=== PATIENT | female | born 1995 | race Caucasian/White ===

== ENCOUNTER → 2025-01-15 | Outpatient (CLI) | payer BC, SELFPAY ==
[2025-01-16 09:12] LABS: BVAG Candida Negative (Negative); Bacterial Vaginosis Markers Negative (Negative); Candida glabrata Negative (Negative); Candida krusei PCR Negative (Negative); Trichomonas Negative (Negative)
== END | disposition home or self-care (01) ==
PROVIDERS: Referring Provider Physician Assistant Medical; Visit Provider Physician Assistant Medical
DX: B37.89 Other sites of candidiasis (principal); N76.0 Acute vaginitis; A59.01 Trichomonal vulvovaginitis
CPT/HCPCS: 81514

== ENCOUNTER → 2025-01-22 | Outpatient (CLI) | payer BC, SELFPAY ==
[2025-01-22 14:47] LABS: Collection Type, Urine Clean Catch
[2025-01-22 16:13] LABS: Amphetamine/Methamp Scrn,U Negative (Negative); Barbiturate Screen,Urine Negative (Negative); Benzodiazepines Screen,Urine Negative (Negative); Benzoylecgonine Screen, Ur Negative (Negative); Fentanyl Screen,Urine Negative (Negative); Opiate Screen,Urine Negative (Negative); THC Screen,Urine Negative (Negative)
[2025-01-22 16:44] LABS: Bacteria,Urine Rare; Bilirubin,Urine Negative (Negative); Blood,Urine 2+ (Negative); Clarity,Urine Clear (Clear/Hazy); Color,Urine Lt-Yellow (Lt Yel-Yel); Glucose, Urine Negative (Negative); Ketones,Urine Negative (Negative); Leukocyte Esterase,Urine Positive (Negative); Nitrite,Urine Negative (Negative); Protein,Urine Negative (Neg - Trace); RBC,Urine 2 /hpf (0-3); Specific Gravity,Urine 1.007 (1.001-1.035); Squamous Epithelial Cell,Urine 4 /hpf (0-5); Urobilinogen,Urine Negative mg/dL (0.0-1.0); WBC,Urine 3 /hpf (0-5)
== END | disposition home or self-care (01) ==
PROVIDERS: PCP Nurse Practitioner Family; Referring Provider Physician Assistant Medical; Visit Provider Physician Assistant Medical
DX: Z34.81 Encounter for supervision of other normal pregnancy, first trimester (principal)
CPT/HCPCS: 80307; 81001; 87086

== ENCOUNTER → 2025-02-04 | Outpatient (CLI) | payer BC, SELFPAY ==
[2025-02-04 16:46] LABS: Glucose,1 Hour PP 50gm Dose 115 mg/dL (80-140)
== END | disposition home or self-care (01) ==
PROVIDERS: Referring Provider Physician Assistant Medical; Visit Provider Physician Assistant Medical
DX: Z34.82 Encounter for supervision of other normal pregnancy, second trimester (principal)
CPT/HCPCS: 36415; 82950

== ENCOUNTER → 2025-02-04 | Outpatient (CLI) | payer BC, SELFPAY ==
[2025-02-04 09:03] LABS: Quantiferon-TB* See Sep Rpt
[2025-02-04 09:56] LABS: Basophils # (Auto) 0.1 Thou/mm3 (0.0-0.2); Basophils % (Auto) 1 % (0-2.5); Eosinophils % (Auto) 0 % (0-10); Hematocrit 34.7 % (36.0-46.0); Hemoglobin 11.6 g/dL (12.0-16.0); Immature Granulocytes % (Auto) 0 % (0-0); Immature Granulocytes Auto 0.02 Thou/mm3 (0.00-0.00); Lymphocytes % (Auto) 26 % (10-50); Mean Corpuscular HGB Conc 33.4 g/dl (31.0-37.0); Mean Corpuscular Hemoglobin 29.1 pg (25.0-35.0); Mean Corpuscular Volume 87 fL (80-100); Monocytes # (Auto) 0.3 Thou/mm3 (0.0-0.8); Monocytes % (Auto) 4 % (0-12); Neutrophils # (Auto) 5.4 Thou/mm3 (1.8-7.7); Neutrophils % (Auto) 69 % (37-80); Nucleated Red Blood Cell % 0 /100 WBC (0); Platelet Count 329 Thou/mm3 (140-440); RDW Standard Deviation 40.5 fL (36.4-46.3); Red Blood Count 3.98 Miln/mm3 (4.00-5.20); White Blood Count 7.8 Thou/mm3 (3.6-11.0)
[2025-02-04 10:03] LABS: Glucose Estimated Average 91 mg/dL (80-131); Hemoglobin A1C 4.8 % Hgb (4.8-6.0)
[2025-02-04 10:17] LABS: Creatinine (Component) 0.5 mg/dL (0.6-1.3); Glucose 83 mg/dL (74-106); eGFR > 60 See Note
[2025-02-04 10:29] LABS: Hepatitis B Surface Antigen Non Reactive (Non React); Rubella, IgG Antibody NonReact(Not Immune)
[2025-02-04 10:30] LABS: Syphilis Nonreactive (Nonreactive)
[2025-02-04 10:42] LABS: Beta HCG,Quantitative 102910 mIU/mL (<5.0)
[2025-02-08 03:04] LABS: HCV RNA, PCR <15 NOT DETECTED IU/mL
[2025-02-08 07:17] LABS: HCV RNA, PCR Log IU <1.18 NOT DETECTED Log IU/mL; HIV Ag/Ab, 4th Gen NON-REACTIVE
== END | disposition home or self-care (01) ==
LOC: COPL 08:20
PROVIDERS: PCP Family Medicine; Referring Provider Physician Assistant Medical; Visit Provider Physician Assistant Medical
DX: Z34.81 Encounter for supervision of other normal pregnancy, first trimester (principal)
CPT/HCPCS: 36415; 82565; 82947; 83036; 84702; 85025; 86480; 86762; 86780; 86850; 86900; 86901; 87340; 87389; 87522

== ENCOUNTER → 2025-05-18 | Outpatient (CLI) | payer BC, SELFPAY | END | disposition home or self-care (01) | LOC: SLDO 14:47 | PROVIDERS: Referring Provider Physician Assistant Medical; Visit Provider Physician Assistant Medical | DX: R10.2 Pelvic and perineal pain (principal) | CPT/HCPCS: 87077; 87086; 87186 ==

== ENCOUNTER → 2025-05-19 | Outpatient (CLI) | payer BC, SELFPAY ==
[2025-05-19 15:48] LABS: Misc Send Out* See Sep Rpt
[2025-05-19 16:48] LABS: Basophils # (Auto) 0.1 Thou/mm3 (0.0-0.2); Basophils % (Auto) 1 % (0-2.5); Eosinophils # (Auto) 0.0 Thou/mm3 (0.0-0.5); Eosinophils % (Auto) 0 % (0-10); Hematocrit 35.9 % (36.0-46.0); Hemoglobin 10.2 g/dL (12.0-16.0); Immature Granulocytes Auto 0.04 Thou/mm3 (0.00-0.00); Lymphocytes # (Auto) 1.9 Thou/mm3 (1.0-4.8); Lymphocytes % (Auto) 22 % (10-50); Mean Corpuscular HGB Conc 28.4 g/dl (31.0-37.0); Mean Corpuscular Hemoglobin 28.8 pg (25.0-35.0); Mean Corpuscular Volume 101 fL (80-100); Monocytes # (Auto) 0.4 Thou/mm3 (0.0-0.8); Monocytes % (Auto) 5 % (0-12); Neutrophils # (Auto) 6.0 Thou/mm3 (1.8-7.7); Neutrophils % (Auto) 71 % (37-80); Nucleated Red Blood Cell # 0.00 Thou/mm3 (0.00-0.00); Nucleated Red Blood Cell % 0 /100 WBC (0); Platelet Count 279 Thou/mm3 (140-440); RDW Standard Deviation 52.1 fL (36.4-46.3); Red Blood Count 3.54 Miln/mm3 (4.00-5.20); White Blood Count 8.5 Thou/mm3 (3.6-11.0)
[2025-05-19 16:56] LABS: Glucose,1 Hour PP 50gm Dose 113 mg/dL (80-140)
[2025-05-19 17:03] LABS: Ferritin 394 ng/mL (7.3-270.7); Iron 42 mcg/dL (50-170); Percent Iron Saturation 9 % (20-55); Total Iron Binding Capacity 429 mcg/dL (250-425); Unsaturated Iron Binding 387 (225-295)
[2025-05-19 17:06] LABS: Folate > 24.00 ng/mL (>5.38); Vitamin B12 280 pg/mL (211-911)
[2025-05-24 22:05] LABS: Hemoglobinopathy Hematocrit 34.0 % (35.0-45.0); Hemoglobinopathy Hemoglobin 10.4 g/dL (11.7-15.5); Hemoglobinopathy Hemoglobin A2 2.7 % (2.0-3.2); Hemoglobinopathy Hemoglobin F 0.0 % (LESS THAN 2.0); Hemoglobinopathy MCH 29.5 pg (27.0-33.0); Hemoglobinopathy MCV 96.6 fL (80.0-100.0); Hemoglobinopathy Red Blood Cnt 3.52 Million/uL (3.80-5.10)
[2025-05-26 07:05] LABS: Hemoglobinopathy Hemoglobin A 97.3 %; Hemoglobinopathy RDW 12.4 % (11.0-15.0)
== END | disposition home or self-care (01) ==
LOC: SLDO 14:46
PROVIDERS: Referring Provider Physician Assistant Medical; Visit Provider Physician Assistant Medical
DX: D50.9 Iron deficiency anemia, unspecified (principal); Z34.82 Encounter for supervision of other normal pregnancy, second trimester
CPT/HCPCS: 36415; 82607; 82728; 82746; 82950; 83020; 83540; 83550; 85014; 85018; 85025; 85041

== ENCOUNTER → 2025-06-03 | Outpatient (CLI) | payer BC, SELFPAY ==
[2025-06-03 17:21] LABS: Basophils # (Auto) 0.1 Thou/mm3 (0.0-0.2); Basophils % (Auto) 1 % (0-2.5); Eosinophils # (Auto) 0.0 Thou/mm3 (0.0-0.5); Eosinophils % (Auto) 0 % (0-10); Hematocrit 34.1 % (36.0-46.0); Hemoglobin 10.7 g/dL (12.0-16.0); Immature Granulocytes Auto 0.06 Thou/mm3 (0.00-0.00); Lymphocytes # (Auto) 2.0 Thou/mm3 (1.0-4.8); Lymphocytes % (Auto) 21 % (10-50); Mean Corpuscular HGB Conc 31.4 g/dl (31.0-37.0); Mean Corpuscular Hemoglobin 28.9 pg (25.0-35.0); Mean Corpuscular Volume 92 fL (80-100); Monocytes # (Auto) 0.5 Thou/mm3 (0.0-0.8); Monocytes % (Auto) 5 % (0-12); Neutrophils # (Auto) 6.6 Thou/mm3 (1.8-7.7); Neutrophils % (Auto) 72 % (37-80); Nucleated Red Blood Cell # 0.00 Thou/mm3 (0.00-0.00); Nucleated Red Blood Cell % 0 /100 WBC (0); Platelet Count 303 Thou/mm3 (140-440); RDW Standard Deviation 43.9 fL (36.4-46.3); Red Blood Count 3.70 Miln/mm3 (4.00-5.20); White Blood Count 9.2 Thou/mm3 (3.6-11.0)
[2025-06-03 17:54] LABS: Syphilis Nonreactive (Nonreactive)
== END | disposition home or self-care (01) ==
LOC: SLDO 14:47
PROVIDERS: Referring Provider Physician Assistant Medical; Visit Provider Physician Assistant Medical
DX: Z34.83 Encounter for supervision of other normal pregnancy, third trimester (principal)
CPT/HCPCS: 36415; 85025; 86780

== ENCOUNTER → 2025-07-01 | Outpatient (CLI) | payer BC, SELFPAY ==
[2025-07-01 10:49] LABS: Basophils # (Auto) 0.1 Thou/mm3 (0.0-0.2); Basophils % (Auto) 1 % (0-2.5); Eosinophils # (Auto) 0.0 Thou/mm3 (0.0-0.5); Eosinophils % (Auto) 0 % (0-10); Hematocrit 30.5 % (36.0-46.0); Hemoglobin 10.0 g/dL (12.0-16.0); Immature Granulocytes Auto 0.04 Thou/mm3 (0.00-0.00); Lymphocytes # (Auto) 2.0 Thou/mm3 (1.0-4.8); Lymphocytes % (Auto) 21 % (10-50); Mean Corpuscular HGB Conc 32.8 g/dl (31.0-37.0); Mean Corpuscular Hemoglobin 28.6 pg (25.0-35.0); Mean Corpuscular Volume 87 fL (80-100); Monocytes # (Auto) 0.4 Thou/mm3 (0.0-0.8); Monocytes % (Auto) 5 % (0-12); Neutrophils # (Auto) 6.8 Thou/mm3 (1.8-7.7); Neutrophils % (Auto) 73 % (37-80); Nucleated Red Blood Cell # 0.00 Thou/mm3 (0.00-0.00); Nucleated Red Blood Cell % 0 /100 WBC (0); Platelet Count 270 Thou/mm3 (140-440); RDW Standard Deviation 41.3 fL (36.4-46.3); Red Blood Count 3.50 Miln/mm3 (4.00-5.20); White Blood Count 9.3 Thou/mm3 (3.6-11.0)
[2025-07-01 11:02] LABS: Alanine Aminotransferase < 7 U/L (10-49); Albumin, Serum 4.1 gm/dL (3.5-5.0); Albumin/Globulin Ratio 1.6 (1.2-2.2); Alkaline Phosphatase 108 U/L (46-116); Anion Gap 9 (7-16); Aspartate Amino Transferase 15 U/L (0-34); BUN/Creatinine Ratio 13 Ratio (12-20); Bilirubin,Total 0.3 mg/dL (0.3-1.2); Blood Urea Nitrogen 5 mg/dL (9-23); Calcium 8.9 mg/dL (8.3-10.6); Calcium (Corrected) 8.9 mg/dL (8.5-10.1); Carbon Dioxide 22.2 mMol/L (20.0-31.0); Chloride 108 mMol/L (98-107); Creatinine (Component) 0.4 mg/dL (0.6-1.3); Globulin 2.5 gm/dL (2.3-3.5); Glucose 78 mg/dL (74-106); Osmolality,Calculated 273 (275-295); Potassium 4.0 mMol/L (3.4-5.1); Sodium 139 mMol/L (136-145); Total Protein 6.6 gm/dL (5.7-8.2); eGFR > 60 See Note
[2025-07-01 11:16] LABS: Folate 20.57 ng/mL (>5.38); Vitamin B12 286 pg/mL (211-911)
[2025-07-01 11:18] LABS: Ferritin 309 ng/mL (7.3-270.7); Iron 71 mcg/dL (50-170); Percent Iron Saturation 15 % (20-55); Total Iron Binding Capacity 445 mcg/dL (250-425); Unsaturated Iron Binding 374 (225-295)
== END | disposition home or self-care (01) ==
LOC: COPL 09:08
PROVIDERS: PCP Family Medicine; Referring Provider Physician Assistant Medical; Visit Provider Physician Assistant Medical
DX: Z34.83 Encounter for supervision of other normal pregnancy, third trimester (principal); D50.9 Iron deficiency anemia, unspecified; R82.998 Other abnormal findings in urine
CPT/HCPCS: 36415; 80053; 82607; 82728; 82746; 83540; 83550; 85025

== ENCOUNTER → 2025-07-05 | Outpatient (CLI) | payer BC, SELFPAY ==
[2025-07-05 12:25] LABS: Creatinine, Urine Volume 750 mL/24hr (600-1800); Protein Total, Urine Volume 750 mL/24hr (600-1800)
[2025-07-05 12:34] LABS: Creatinine, 24 Hour Urine 0.8 gm/24hr (0.6-1.8); Creatinine,Urine 102 mg/dL (30-125); Protein Total, 24 hr Urine 225 mg/24hr (<149); Protein Total, Urine 30 mg/dL (1-14)
== END | disposition home or self-care (01) ==
LOC: SLDO 11:08
PROVIDERS: Referring Provider Physician Assistant Medical; Visit Provider Physician Assistant Medical
DX: R82.998 Other abnormal findings in urine (principal); D50.9 Iron deficiency anemia, unspecified
CPT/HCPCS: 82570; 84156

== ENCOUNTER → 2025-07-13 | Outpatient (CLI) | payer BC, SELFPAY | END | disposition home or self-care (01) | LOC: SLDO 14:30 | PROVIDERS: Referring Provider Physician Assistant Medical; Visit Provider Physician Assistant Medical | DX: Z34.83 Encounter for supervision of other normal pregnancy, third trimester (principal) | CPT/HCPCS: 87077; 87086; 87186 ==

== ENCOUNTER → 2025-07-20 | Outpatient (CLI) | payer BC, SELFPAY ==
[2025-07-21 12:24] LABS: BVAG Candida Negative (Negative); Bacterial Vaginosis Markers Positive (Negative); Candida glabrata Negative (Negative); Candida krusei PCR Negative (Negative); Trichomonas Negative (Negative)
== END | disposition home or self-care (01) ==
LOC: SLDO 14:40
PROVIDERS: Referring Provider Specialist; Visit Provider Specialist
DX: Z34.83 Encounter for supervision of other normal pregnancy, third trimester (principal)
CPT/HCPCS: 81514

== ENCOUNTER 2025-08-16 15:12 | Outpatient (CLI) | payer BC, SELFPAY ==
[2025-08-16] VITALS (8 sets, daily range): BP systolic 121; BP diastolic 71; PULSE 90–105; RESP 18–98; TEMP 37.2; O2SAT 96–100; BMI 29.8
--- NOTE | 2025-08-16 15:24 | XR_ITS ---
Examination: Biophysical profile, ultrasound Date and time of exam: 08/16/2025 at 3:59 p.m. Technique: Multiple transabdominal sonographic images of the pelvis abdomen obtained. Attention is directed to the breathing movement, gross body movement, amniotic fluid volume and tone. Findings: The body movement score is 2, breathing motion score is 2, tone is 2, and the quantitative amniotic fluid volume index measures 12.3 cm which gives a score of 2 Total biophysical profile is 8 of 8. breathing movement is 2. Gross body movement is 2. tone is 2. Qualitative amniotic fluid volume is 2 Impression: Biophysical profile is 8 of 8. This is perfectly normal. In addition, the heart rate is 140 bpm which is normal
--- NOTE | 2025-08-22 07:34 | PC.NURSE ---
PT CALLED, ASKED FOR BED AVAILABILITY FOR IOL, INFORMED OF NO BEDS AVAILABLE AT THIS TIME, EDUCATED ON KICK COUNT AND LABOR PRECAUTIONS, WILL CALL ONCE BED BECOMES AVAILABLE, ASKED PT TO CALL BACK AT 1700, PT VERBALIZED UNDERSTANDING
--- NOTE | 2025-08-22 14:51 | PC.NURSE ---
CALLED PT, ASKED PT TO COME IN FOR IOL, BE HERE BY 1600
== END 2025-08-16 16:50 | disposition home or self-care (01) ==
LOC: S4S1 15:13 → S4SX 15:14
PROVIDERS: Referring Provider Specialist; Visit Provider Specialist
DX: Z34.83 Encounter for supervision of other normal pregnancy, third trimester (principal); Z3A.40 40 weeks gestation of pregnancy
CPT/HCPCS: 59025; 76819

== ENCOUNTER 2025-08-22 15:26 | Inpatient (IN) | payer BC, SELFPAY ==
--- NOTE | 2025-08-16 15:18 | ESHP_ITS ---
RE: CHAPIN CRUZ : 1995 DATE OF ADMISSION: 08/22/2025 HISTORY OF PRESENT ILLNESS: This is a 29-year-old 2, para 1 with due date of 08/15 with intrauterine at 41 weeks and 0 day who present for induction of labor for postdates. Patient reports normal movement. She denies any leaking or bleeding. She had a maternal medicine ultrasound on 08/04/2025, which showed growth at the 43rd percentile and abdominal circumference at the 76th percentile. ALLERGIES: NO KNOWN DRUG ALLERGIES. MEDICATIONS: 1. multivitamin 1 p.o. daily. 2. Ferrous sulfate 325 mg 1 p.o. b.i.d. PAST MEDICAL HISTORY: Gestational diabetes mellitus in a prior , rubella nonimmune, iron deficiency anemia. FAMILY HISTORY: Diabetes. OBSTETRIC HISTORY: 08/2023, 37-week vaginal delivery, 6 pounds 6 ounces male complicated by meconium aspiration. REVIEW OF SYSTEMS: She denies any chest pain, palpitations, cough, fever, shortness of breath, or lower extremity pain. PHYSICAL EXAMINATION: VITAL SIGNS: Blood pressure 112/62, heart rate 88, respirations 18, temperature 98.2, weight 156 pounds. HEENT: Oropharynx and sclerae clear. LUNGS: Clear to auscultation bilaterally. HEART: Regular rate and rhythm. ABDOMEN: Gravid, consistent with estimated 7-3/4 pounds. PELVIC: See RN notes. EXTREMITIES: Nontender. SKIN: No gross rashes or lesions. NEUROLOGIC: No focal deficit. ASSESSMENT AND PLAN: Intrauterine at 41 weeks and 0 day. Postdates. Induction of Labor. Informed consent obtained. Patient made aware of the risks, complications, alternatives, and benefits of the proposed procedure and she agrees. DT: 15:04:41 TT: 15:17:00 Ref: [id number] - TID: [id number] [facility]
[2025-08-22] VITALS (97 sets, daily range): BP systolic 98–120; BP diastolic 55–73; PULSE 93–122; RESP 16–17; TEMP 36.8–37.3; O2SAT 89–100; BMI 29.6
--- NOTE | 2025-08-22 16:21 | PD.ADDHP ---
Addendum History & Physical Addendum Date of report being addended: 08/22/25 Narrative: No changes in her exam or H and P . BP 111/70 HR 97 RR 16 T afebrile.
[2025-08-22] MEDS: RINGERS LACTATED 1000 ML 1,000 ML 100 ML IV ×2 (16:31→18:30)
[2025-08-22 17:22] LABS: Basophils # (Auto) 0.1 Thou/mm3 (0.0-0.2); Basophils % (Auto) 1 % (0-2.5); Eosinophils # (Auto) 0.1 Thou/mm3 (0.0-0.5); Eosinophils % (Auto) 1 % (0-10); Hematocrit 34.3 % (36.0-46.0); Hemoglobin 11.0 g/dL (12.0-16.0); Immature Granulocytes Auto 0.04 Thou/mm3 (0.00-0.00); Lymphocytes # (Auto) 2.5 Thou/mm3 (1.0-4.8); Lymphocytes % (Auto) 26 % (10-50); Mean Corpuscular HGB Conc 32.1 g/dl (31.0-37.0); Mean Corpuscular Hemoglobin 26.9 pg (25.0-35.0); Mean Corpuscular Volume 84 fL (80-100); Monocytes # (Auto) 0.7 Thou/mm3 (0.0-0.8); Monocytes % (Auto) 7 % (0-12); Neutrophils # (Auto) 6.1 Thou/mm3 (1.8-7.7); Neutrophils % (Auto) 65 % (37-80); Nucleated Red Blood Cell # 0.00 Thou/mm3 (0.00-0.00); Nucleated Red Blood Cell % 0 /100 WBC (0); Platelet Count 299 Thou/mm3 (140-440); RDW Standard Deviation 45.2 fL (36.4-46.3); Red Blood Count 4.09 Miln/mm3 (4.00-5.20); White Blood Count 9.4 Thou/mm3 (3.6-11.0)
[2025-08-22 17:50] LABS: ROM Swab Mixed By: RN; Rupture of Fetal Membranes Positive (Negative); Swb Mxed in Solvent 1 min? Yes
[2025-08-22 19:42] LABS: Syphilis Nonreactive (Nonreactive)
[2025-08-22] MEDS: OXYTOCIN in NS 30 units 30 UNIT/500 ML BAG IV (20:54)
[2025-08-23] VITALS (124 sets, daily range): BP systolic 101–165; BP diastolic 52–83; PULSE 72–214; RESP 16–18; TEMP 36.7–37.1; O2SAT 89–100
[2025-08-23] MEDS: OXYTOCIN in NS 20 units 20 UNIT/1,000 ML BAG 125 UNIT IV (05:00)
[2025-08-23] MEDS: LIDOCAINE HCL 1% 20 ML VIAL INFL (05:00)
[2025-08-23] MEDS: METHYLERGONOVINE INJ 0.2 MG/ML VIAL IM (05:06)
[2025-08-23] MEDS: BENZO/LANO/ALOE (Dermoplast) 60 GM CAN 1 SPRAY TOP (05:21)
--- NOTE | 2025-08-23 05:21 | PD.LDDS ---
DS: Providers Provider Date of admission: 08/22/25 15:26 Primary care physician: Physician No Primary/Family Admitting Provider: Akin Chávez MD Attending Provider on Admission: Akin Chávez MD Attending Provider on DC: Akin Chávez MD Discharging Provider: Akin Chávez MD DS: Diagnosis Discharge Diagnosis (1) Gestational diabetes mellitus (GDM): Status: Acute (2) (normal spontaneous vaginal delivery): Status: Acute Problem List Completed Was Problem List Reviewed/Reconciled?: Yes Summary/Hosp Course Time Spent with Patient Time attestation: Total time spent providing and/or coordinating discharge services: Exam Vital Signs Temp Pulse Resp BP Pulse Ox O2 Del Method 98.4 F 99 17 113/57 L 100 Room Air 08/23/25 02:40 08/23/25 05:07 08/23/25 02:40 08/23/25 05:07 08/23/25 05:16 08/23/25 02:40 Discharge Plan Plan Patient Disposition: HOME (Self Care) Patient condition on transfer: Stable Prescriptions/Referrals Prescriptions/Med Rec: New ibuprofen 600 mg tablet 600 mg PO Q6H PRN (Reason: pain) Qty: 30 0RF Continued prenat.vits,serafin,[id number] Tablet 1 tab PO QDAY Referrals: No Primary/Family,Physician [Primary Care Provider] Patient/Caregiver Discharge Instructions Discharge Activity: activity as tolerated Other Discharge Activity Instructions:: Follow up office 6 weeks Print Language: [place] Stand Alone Forms: Bertha Award Info., Patient Portal Info Letter Discharge Order Discharge Orders: Discharge (Routine); Ordered 08/24/25 Ordered By: Akin Chávez Planned Discharge Date 08/24/25
[2025-08-23] MEDS: IBUPROFEN TAB 400 MG TABLET 800 MG PO (05:35)
--- NOTE | 2025-08-23 07:16 | OBDSUM_ITS ---
Data ([place]) Data Hx Section: No : 2 Term: 1 : 0 Livin Abortions: Spontaneous & Theraputic: 0 Delivery Data ([place]) Labor Data Initiation of labor: Augmentation Induction/Augmentation Agent: Pitocin ROM date: 08/22/25 ROM time: 17:04 Amniotic membrane rupture type: Spontaneous Amniotic fluid description: Clear Delivery Data EDC: 08/15/25 EDC calculated by:: LMP/early US confirmation Onset of labor date: 08/23/25 Onset of labor time: 03:36 Complete dilation date: 08/23/25 Complete dilation time: 04:52 [place] delivery date: 08/23/25 [place] delivery time: 04:57 Gestational age (weeks): 41 Gestational age (days): 0 Placenta delivery date: 08/23/25 Placenta delivery time: 05:02 Stage 1 total time: Labor - Stage 1 Duration 1 hours and 16 minutes Delivered by: Akin Chávez Delivery nurse: Alfie Gary RN [place] nurse: Angela Nunes RN [employer] Operator at delivery: No Support person(s) at delivery: FOB, mother of pt Other staff at delivery: Kristine Leigh RN Delivery Method Delivery method: Normal Vaginal Delivery Presentation: Vertex position: OA Anesthesia Type Anesthesia Type: Local and Epidural Placenta Placenta delivery description: Spontaneous Cord blood sent to lab: Yes cord blood collection: Cord Blood Type Episiotomy Episiotomy description: None Lacerations #1: Perineal: 2nd degree Perineal repair Sutures used for repair: 3.0 Chromic EBL Estimated blood loss (ml): 300 Umbilical Cord cord description: 3 Vessels Complications Complications: None Data ([place]) [place] Data order: 1 's gender: Female weight (gms): 7 lb 11.812 oz Weight (pounds): 7 lbs and 11.8 ozs 1 minute: 8 5 minutes: 9
[2025-08-23 11:00] LABS: Basophils # (Auto) 0.1 Thou/mm3 (0.0-0.2); Basophils % (Auto) 1 % (0-2.5); Eosinophils # (Auto) 0.0 Thou/mm3 (0.0-0.5); Eosinophils % (Auto) 0 % (0-10); Hematocrit 35.4 % (36.0-46.0); Hemoglobin 11.4 g/dL (12.0-16.0); Immature Granulocytes Auto 0.08 Thou/mm3 (0.00-0.00); Lymphocytes # (Auto) 2.5 Thou/mm3 (1.0-4.8); Lymphocytes % (Auto) 14 % (10-50); Mean Corpuscular HGB Conc 32.2 g/dl (31.0-37.0); Mean Corpuscular Hemoglobin 26.8 pg (25.0-35.0); Mean Corpuscular Volume 83 fL (80-100); Monocytes # (Auto) 0.9 Thou/mm3 (0.0-0.8); Monocytes % (Auto) 5 % (0-12); Neutrophils # (Auto) 14.2 Thou/mm3 (1.8-7.7); Neutrophils % (Auto) 80 % (37-80); Nucleated Red Blood Cell # 0.00 Thou/mm3 (0.00-0.00); Nucleated Red Blood Cell % 0 /100 WBC (0); Platelet Count 280 Thou/mm3 (140-440); RDW Standard Deviation 44.2 fL (36.4-46.3); Red Blood Count 4.26 Miln/mm3 (4.00-5.20); White Blood Count 17.8 Thou/mm3 (3.6-11.0)
[2025-08-24 00:14] VITALS: BP 105/70; PULSE 84; RESP 14; TEMP 36.6; O2SAT 98
[2025-08-24] MEDS: IBUPROFEN TAB 400 MG TABLET 800 MG PO (03:30)
[2025-08-24 03:34] VITALS: BP 106/70; PULSE 85; RESP 18; TEMP 36.6; O2SAT 97
--- NOTE | 2025-08-24 07:24 | PC.NURSE ---
0700 Pt declined the TDAP vaccine. Education provided. Patient states she will receive it later in office from her primary MD.
[2025-08-24 08:00] VITALS: BP 98/61; PULSE 75; RESP 18; TEMP 36.8; O2SAT 98
== END 2025-08-24 11:50 | disposition home or self-care (01) | DRG 807 ==
LOC: S4SX 08-23 05:18 → S4NX 08-23 07:41
PROVIDERS: Admitting Provider Specialist; Visit Provider Specialist
DX: O48.0 Post-term pregnancy (principal); Z37.0 Single live birth; O24.429 Gestational diabetes mellitus in childbirth, unspecified control; Z3A.41 41 weeks gestation of pregnancy; O70.1 Second degree perineal laceration during delivery
CPT/HCPCS: 36415; 59409; 84112; 85025; 86780; 86850; 86900; 86901; 94762; J2210; J2590; J2795; J3490; J7120; S0191; A9270